=== PATIENT | female | born 1985 | race American Indian/Alaskan Native ===

== ENCOUNTER 2023-10-28 13:14 | Emergency (ER) | payer SELFPAY ==
[~2023-10-28] VITALS: Ht 172.7 cm; Wt 62.2 kg
[2023-10-28 16:19] VITALS: BP 118/69; PULSE 103; RESP 18; TEMP 97.6; O2SAT 98
== END 2023-10-28 16:20 | disposition home or self-care (01) ==
LOC: ER 13:14 → EDBD 13:14 → ER 16:18
DX: H92.01 Otalgia, right ear (principal); Z88.1 Allergy status to other antibiotic agents; Z88.8 Allergy status to other drugs, medicaments and biological substances